=== PATIENT | female | born 1950 | race Caucasian/White ===

== ENCOUNTER 2017-09-16 05:24 | Inpatient (IN) | payer OTHER, MEDICARE, SELFPAY ==
[2017-09-03 10:44] VITALS: BP 155/79; PULSE 62; RESP 16; TEMP 36.1; O2SAT 95; BMI 33.3
--- NOTE | 2017-09-03 10:50 | SDCEKG_ITS ---
Test Reason : Blood Pressure : / mmHG Vent. Rate : 060 BPM Atrial Rate : 060 BPM P-R Int : 214 ms QRS Dur : 108 ms QT Int : 434 ms P-R-T Axes : 058 -29 069 degrees QTc Int : 434 ms Sinus rhythm with 1st degree A-V block Incomplete right bundle branch block Borderline ECG Confirmed by GERTRUDIS ROBERT ([id number]), editor index BANDAR HERMOSILLO ([id number]) on 09/10/2017 3:17:19 PM Referred By: FAUSTINO Confirmed By:GERTRUDIS ROBERT
--- NOTE | 2017-09-13 12:01 | CASEMGMT ---
Addendum entered by Alem Chery 09/13/17 14:51: Social Work Return phone call from the pt. Introduced self and role at [facility]. The pt reports that she lives with her in daughter in a two story home with a one-level setup and 2 steps for entry. DME consists of a walker and cane and pt denies anticipation of additional DME needs. Pt intends on participating in outpatient therapy at [facility] and confirms that she will have transportation to appointments. DARRIAN CM to f/u with post-operatively. Plan: Outpatient therapy at [facility]. JESSICA Ibarra Original Note: Social Work Placed call to the pt to discuss discharge planning. Left vm as pt was unavailable and requested a return phone call. SW to continue to follow and assist. JESSICA Ibarra
[2017-09-16] VITALS (12 sets, daily range): BP systolic 127–153; BP diastolic 48–87; PULSE 62–90; RESP 16–18; TEMP 36.4–36.9; O2SAT 92–98; BMI 33.3; BMI 32.8
[2017-09-16] MEDS: Celecoxib 200 MG Capsule 400 MG PO (05:57)
[2017-09-16] MEDS: oxyCODONE HCl Cr 10 MG Tablet 20 MG PO (05:57)
[2017-09-16] MEDS: Acetaminophen 500 MG Tablet 1000 MG PO ×2 (05:58→21:51)
[2017-09-16] MEDS: Lactated Ringers 1,000 ML 999 ML IV (06:30)
[2017-09-16] MEDS: Cefazolin 2 GM in Syringe IV (07:30)
--- NOTE | 2017-09-16 08:24 | RAD_ITS ---
STUDY: X-RAY - RIGHT KNEE REASON FOR EXAM: Female, 67 years old. Total knee arthroplasty. TECHNIQUE: AP and lateral view(s) of the knee. COMPARISON: None. FINDINGS: Normal visualized distal femur. Normal visualized proximal tibia and fibula. Normal proximal tibiofibular articulation. The patient is status post total knee replacement. There is good alignment. Postoperative soft tissue changes. RAD/Knee 1 or 2 Views IMPRESSION: Status post total knee replacement. There is good alignment. Postoperative soft tissue changes. Electronically Signed: Fabio Brown MD at 9:31 EST Tel [phone], Service support ,
--- NOTE | 2017-09-16 08:27 | PCM.OPRPT ---
Report of Operation Date of Procedure: 09/16/17 Pre-Operative Diagnosis: Severe end-stage osteoarthritis right knee Post-Operative Diagnosis: Severe end-stage osteoarthritis right knee Surgery/Procedure Performed:: Total knee arthroplasty right Description of Surgical Findings:: Eburnation of bone, varus alignment, periarticular osteophytes consistent with tricompartmental osteoarthritis immunologist: Bossman Stanley Type of Anesthesia:: Spinal Anesthesiologist: Adan Alcocer Special Medications: TXA Specimen's removed: Bone and soft tissue Estimated Blood Loss (mL): 100 Fluids Replaced: See anesthesia record Description of Procedure: Implants: Nisa triathlon size 3 cemented CR femur, 3 tibia, 32 x 9 mm patella cemented with Simplex. 9 mm cruciate retaining articulating surface Indications: Patient has severe end-stage osteoarthritis diagnosed via x-rays in the knee. They have failed all forms of conservative measures including activity modification, injections, anti-inflammatories, use of assistive device. The patient has pain that affects on a daily basis and prevents him from doing things that they enjoyed. They have elected to undergo the above procedure. The risks of the procedure were discussed at length and their questions were answered. Procedure description: The patient was greeted in the preoperative area. The right knee was then marked with a surgical marker. Patient was then taken to or [address]. They were administered a dose of antibiotics as well as tranexamic acid. Once adequate anesthesia was obtained and airway was secured to placed in supine position on the operating room table. A well-padded tourniquet was placed on the affected extremity. Leg was then prepped and draped in the usual sterile fashion from the knee down. Ioban was used on the skin. Surgical timeout was then performed and confirmed with all present. Six-inch Esmarch was used to examine the limb and tourniquet was then inflated to 250 mmHg. A longitudinal incision was then planned and carried out in the anterior aspect of the knee. The dissection was then carried the length of the incision the extensor mechanism was identified. Standard medial parapatellar arthrotomy was then performed revealing severe eburnation of bone and periarticular osteophytes. There is complete loss of cartilage especially in the medial compartment with varus alignment. Anterior fat pad was removed for visualization purposes and the anterior medial aspect of the tibia was skeletonized for exposure to the knee. The knee was then flexed the patella was inverted. Opening reamer was then used in the femur approximately 1 cm anterior to the attachment of the PCL. The intramedullary valgus wand was then placed in the femur set at 5? of valgus. The distal femoral cutting jig was then applied to the femur with anticipated resection of approximately 8 mm. This was then made with a oscillating saw. The sizing guide was then placed referencing off the posterior condyles and also reference off the epicondylar axis. This was measured and the appropriate size 4-in-1 cutting jig was then applied to the distal femur. Anterior posterior cuts were made followed by the anterior and posterior chamfer cuts. These bony pieces and fragments were removed and placed on the back table. Posterior retractor was then utilized and the tibia was subluxed anteriorly. Extramedullary tibial alignment jig was then applied to the tibia referencing off the medial one third of the tibial tubercle the anterior tibial spine the middle aspect of the tibiotalar joint. Also reference off patient's paiute-shoshone slope. The tibial cutting jig was then pinned with anticipated resection of 2 mm off of the deficient medial tibial condyle. This cut was made with the oscillating saw. Once this was complete a laminar cafeteria cashier was utilized in both medial lateral meniscus were removed and a posterior capsular osteophytes were also removed. Posterior capsule release was performed in the posterior capsule as well as the geniculate arteries are treated with the aqua Loreto. The tibia was incised and the appropriate sized tibial tray was then pinned. The femoral trial was then placed and the knee was trialed. Full flexion-extension were easily achieved. The knee seemed to balance quite nicely. Any remaining osteophytes were removed at this time. Once this was complete the patella was everted and the Brandon patella reaming device was then utilized the patella was then placed in the appropriate jig and reamer was then used to remove approximately 9 mm of the undersurface of the patella. A soft tissue remaining was in the way was removed and patella trial was then placed listed maintain excellent tracking using the no thumbs technique. The tibial tray at this point was punched to accommodate the fins of the final implant. At this point cement was mixed on the back table. The trial components were removed and the knee was copiously irrigated. Did use a cocktail of injection for postoperative pain control. The final components were then cemented in the standard fashion and excess cement was removed with cement removal tools and patellar clamp is placed in the patella. As the cement had cured in full extension tourniquet was deflated and hemostasis was perfect with Bovie cautery as well as the aqua Manus. Needle is once again trialed with different size polyethylenes to ensure the full range of motion was achieved as well as excellent balancing ligamentously was achieved. followed by copious irrigation. Final implant was then inserted locking mechanism was engaged and confirmed to be locked. The arthrotomy was then closed with #1 Vicryl aggravate type fashion interrupted. Subcutaneous tissue was closed with 0 Vicryl and surgical mg were placed in the skin. A occlusive silver impregnated dressing was then applied followed by well-padded sterile dressing secured with an Trace wrap. The patient was taken to the PACU in stable condition. No complications known at this time. Postoperatively we will maintain standard total knee postoperative protocol. The use of the physician assistant clinical director was integral during this procedure. They assisted with positioning placement of the tourniquet retracting closure and placement of the dressing. The procedure would have been much more difficult without their expertise and assistance - Admit VTE Documentation VTE Present on Admission: Yes VTE Mechan Device Prophylaxis: Thigh High KAMALA Blancae VTE Pharm Prophylaxis ordered?: Yes
[2017-09-16] MEDS: Ondansetron 4 MG/2 ML Vial IV (11:22)
[2017-09-16] MEDS: Lactated Ringers 1,000 ML 125 ML IV ×2 (14:24→23:00)
[2017-09-16] MEDS: Cefazolin 1 GM/50 ML BAG IV ×2 (14:25→23:00)
[2017-09-16] MEDS: Aspirin 325 MG Tablet PO (16:50)
[2017-09-16] MEDS: Celecoxib 200 MG Capsule PO (21:51)
[2017-09-16] MEDS: Atorvastatin Calcium 10 MG Tablet PO (21:51)
[2017-09-17 02:37] VITALS: BP 100/49; PULSE 64; RESP 18; TEMP 36.6; O2SAT 96
[2017-09-17] MEDS: Acetaminophen 500 MG Tablet 1000 MG PO ×3 (05:27→21:19)
[2017-09-17] MEDS: oxyCODONE 5 MG Tablet PO (07:22)
--- NOTE | 2017-09-17 07:29 | PCM.PN.ORT ---
Subjective: Patient sitting at bedside eating breakfast, pain well-managed. Patient denies chest pain, shortness breath, calf pain, nausea vomiting. No other complaints. Objective: Dressing is clean dry intact, neurovascular intact. Vital signs within normal limits. Negative signs and symptoms of DVT - Physical Exam General: Alert, Oriented x3, Cooperative Oral: Moist Mucosa Neurological: Cranial nerves II-XII grossly intact Psych/Mental Status: Normal Affect, Alert and oriented to time, place, person, mood and affect Vital Signs Temp Pulse Resp BP Pulse Ox 97.8 F 64 18 100/49 L 96 09/17/17 02:37 09/17/17 02:37 09/17/17 02:37 09/17/17 02:37 09/17/17 02:37 Oxygen Delivery Method Room Air Weight: 92.4 kg Body Mass Index (BMI) 32.8 Intake and Output for Last 24 Hours 09/15/17 09/16/17 09/17/17 23:59 23:59 23:59 Intake Total 1500 / 1500 1918 Output Total 100 / 100 Balance 1500 / 1500 1818 Assessment/Plan Status post right total knee arthroplasty Plan 1. Continue pain medications as prescribed 2. Begin physical therapy, weight-bear as tolerated, with walker 3. Aspirin 325 mg 1 p.o. every 12 hours ?30 days for postop DVT prophylaxis 4. Encourage incentive spirometry 5. Possible discharge home tomorrow 6. CBC and BMP today
[2017-09-17 08:30] VITALS: BP 113/47; PULSE 67; RESP 16; TEMP 36.6; O2SAT 99
[2017-09-17] MEDS: Lisinopril 10 MG Tablet PO (08:30)
[2017-09-17] MEDS: Celecoxib 200 MG Capsule PO ×2 (08:30→21:18)
[2017-09-17] MEDS: Aspirin 325 MG Tablet PO ×2 (08:30→17:13)
[2017-09-17 08:33] LABS: Absolute Lymphocyte Count 1.93 X10^3/ul (0.83-4.51); Basophil# 0.03 X10^3/uL; Basophil% 0.3 % (0-1); Eosinophil# 0.06 X10^3/uL; Eosinophils% 0.6 % (0-5); Hematocrit 38.3 % (37-47); Hemoglobin 12.1 g/dl (12.0-15.0); Lymphocyte # 1.93 X10^3/ul (4.0); Lymphocyte % 18.2 % (19-41); Mean Corp Hgb Conc 31.6 g/gl (32-36); Mean Corpuscular Hgb 29.2 pg (27.0-32.0); Mean Corpuscular Volume 92.3 fL (81-99); Mean Platelet Vol. 10.7 fl (6.2-12.0); Monocyte% 15.1 % (0-10); Neutrophil # 6.97 X10^3/uL (2.7-7.7); Neutrophil % 65.6 % (47-70); Platelet Count 263 K/mm3 (150-450); RBC Distribution Width CV 14.6 % (11.6-14.6); RBC Distribution Width SD 49.1 fl (35.1-43.9); Red Blood Count 4.15 M/mm3 (4.2-5.4); White Blood Count 10.6 K/mm3 (4.4-11.0)
[2017-09-17 08:35] LABS: Differential Indicated SCAN CRITERIA MET; POSITIVE COUNT NO; POSITIVE DIFFERENTIAL YES; POSITIVE MORPHOLOGY NO
[2017-09-17 08:50] LABS: Anion Gap 7 (5-15); BUN 15 mg/dL (7-18); BUN/Creat Ratio 15.8 RATIO (10-20); Calcium,Total 8.1 mg/dL (8.5-10.1); Chloride 105 mmol/L (98-107); Creatinine, Serum 0.95 mg/dL (0.55-1.02); EST Glomerular Filtration Rate 62 mL/min (>60); Est Glom Filt Rate - Afr Amer 75 mL/min (>60); Estimated Creatinine Clearance 52.32 ml/min; Glucose 111 mg/dL (70-110); Potassium 3.9 mmol/L (3.5-5.1); Sodium Level 140 mmol/L (136-145)
[2017-09-17] MEDS: Tolterodine Tartrate 2 MG CAP.SA PO (09:57)
--- NOTE | 2017-09-17 12:11 | CASEMGMT ---
DARRIAN VILLATORO Face to Face with patient for initial transition planning/care coordination assessment. RN SHAUNA introduced self and role at [facility]. Patient lying in bed, alert and oriented. Patient willing to participate in assessment and is able to answer all questions appropriately. Care providers, pharmacy, and demographics verified. See link attached. Patient wishes to discharge home with outpatient therapy setup at [facility] in [place]. Family is to provide transportation for patient to therapy. Patient states she has no further needs or concerns at this time. CM to follow for discharge planning needs that may arise. Disposition Plan: Patient to discharge home with outpatient therapy, and follow-up plans in place.
[2017-09-17] MEDS: CLARIFY ORDER NOTE (14:09)
[2017-09-17 14:10] VITALS: BP 114/55; PULSE 70; RESP 18; TEMP 36.4; O2SAT 96
[2017-09-17 20:00] VITALS: BP 130/45; PULSE 73; RESP 18; TEMP 36.9; O2SAT 98
[2017-09-17] MEDS: Atorvastatin Calcium 10 MG Tablet PO (21:18)
[2017-09-18 02:15] VITALS: BP 140/46; PULSE 76; RESP 18; TEMP 36.9; O2SAT 95
[2017-09-18] MEDS: oxyCODONE 5 MG Tablet PO ×2 (02:30→08:20)
[2017-09-18] MEDS: Acetaminophen 500 MG Tablet 1000 MG PO (05:55)
[2017-09-18 08:19] VITALS: BP 130/42; PULSE 77; RESP 18; TEMP 36.6; O2SAT 98
[2017-09-18] MEDS: Aspirin 325 MG Tablet PO (08:21)
[2017-09-18] MEDS: Celecoxib 200 MG Capsule PO (08:21)
[2017-09-18] MEDS: Lisinopril 10 MG Tablet PO (08:23)
[2017-09-18] MEDS: Tolterodine Tartrate 2 MG CAP.SA PO (10:56)
--- NOTE | 2017-09-18 12:32 | PCM.PN.ORT ---
Subjective: Patient sitting up in bed, pain well-managed. Patient states she has been having urinary frequency with urinary retention. Patient states the nursing staff is catheter ?2. Patient does admit that she has been being treated for UTI preoperatively, patient denies any complaints of pain, burning, or abdominal pain. Patient states that she did have urinary frequency preoperatively. Patient otherwise has no other complaints, pain well-managed, denies chest pain, shortness of breath, or nausea vomiting. States she is ready for discharge home Objective: Dressing is clean dry intact. Vital signs labs within normal limits. Patient's abdomen soft nontender. Patient has negative signs and symptoms of DVT. - Physical Exam General: Alert, Oriented x3, Cooperative HEENT: PERRLA Oral: Moist Mucosa Neurological: Cranial nerves II-XII grossly intact Psych/Mental Status: Normal Affect, Alert and oriented to time, place, person, mood and affect Vital Signs Temp Pulse Resp BP Pulse Ox 97.9 F 77 18 130/42 H 98 09/18/17 08:19 09/18/17 08:19 09/18/17 08:19 09/18/17 08:19 09/18/17 08:19 Oxygen Delivery Method Room Air Weight: 92.4 kg Body Mass Index (BMI) 32.8 Intake and Output for Last 24 Hours 09/16/17 09/17/17 09/18/17 23:59 23:59 23:59 Intake Total 1500 / 1500 2479 / 2479 440 / 440 Output Total 100 / 100 1500 / 1500 Balance 1500 / 1500 2379 / 2379 -1060 / -1060 Assessment/Plan Status post right total knee arthroplasty Postop urinary retention Plan 1. Continue pain medications as prescribed 2. Appendectomy outpatient at [facility]. 3. Aspirin 325 mg 1 p.o. every 12 hours ?30 days for postop DVT prophylaxis 4. Follow-up as scheduled, see pink sheet 5. Discharge home today 6. Straight cath prior to discharge, with SUPPLIER QUALITY ENGINEER 7. Discussed with urology, patient will be straight cath prior to discharge, urine will be sent for C&S, patient will begin Keflex 500 mg 1 p.o. every 8 hours ?7 days. Patient will call office for follow-up in 1-2 days
--- NOTE | 2017-09-18 12:37 | PN.ORTHO_ITS ---
Subjective: Patient sitting up in bed, pain well-managed. Patient states she has been having urinary frequency with urinary retention. Patient states the nursing staff is catheter ?2. Patient does admit that she has been being treated for UTI preoperatively, patient denies any complaints of pain, burning, or abdominal pain. Patient states that she did have urinary frequency preoperatively. Patient otherwise has no other complaints, pain well-managed, denies chest pain, shortness of breath, or nausea vomiting. States she is ready for discharge home Objective: Dressing is clean dry intact. Vital signs labs within normal limits. Patient' s abdomen soft nontender. Patient has negative signs and symptoms of DVT. - Physical Exam General: Alert, Oriented x3, Cooperative HEENT: PERRLA Oral: Moist Mucosa Neurological: Cranial nerves II-XII grossly intact Psych/Mental Status: Normal Affect, Alert and oriented to time, place, person, mood and affect Vital Signs Temp Pulse Resp BP Pulse Ox 97.9 F 77 18 130/42 H 98 09/18/17 08:19 09/18/17 08:19 09/18/17 08:19 09/18/17 08:19 09/18/17 08:19 Oxygen Delivery Method Room Air Weight: 92.4 kg Body Mass Index (BMI) 32.8 Intake and Output for Last 24 Hours 09/16/17 09/17/17 09/18/17 23:59 23:59 23:59 Intake Total 1500 / 1500 2479 / 2479 440 / 440 Output Total 100 / 100 1500 / 1500 Balance 1500 / 1500 2379 / 2379 -1060 / -1060 Assessment/Plan Status post right total knee arthroplasty Postop urinary retention Plan 1. Continue pain medications as prescribed 2. Appendectomy outpatient at [facility]. 3. Aspirin 325 mg 1 p.o. every 12 hours ?30 days for postop DVT prophylaxis 4. Follow-up as scheduled, see pink sheet 5. Discharge home today 6. Straight cath prior to discharge, with POULTRY PICKER 7. Discussed with urology, patient will be straight cath prior to discharge, urine will be sent for C&S, patient will begin Keflex 500 mg 1 p.o. every 8 hours ?7 days. Patient will call office for follow-up in 1-2 days
--- NOTE | 2017-09-18 12:40 | PCM.DC.TKR ---
Discharge Diet: No Restrictions Discharge Activity: May Not Drive, May Shower, Use Walker May shower in (days): 1 Ice area for (Minutes): 20 - each hour while awake. Weight Bearing Status: Weight bearing as tolerated Elevate: Operative Extremity Additional Activity Instructions:: Wear elastic stockings for 2 weeks after your surgery. Call your doctor if your incision/area has: Continuous Slow Oozing, Sudden Increased Bleeding, Increased Pain/ Swelling, Increased Redness, Foul Smelling Discharge Call your doctor if you observe: Fever of 101 or Higher, Coldness, Increased Pain - in extremity, Numbness or Tingling, Change in Color, Calf discomfort, Uncontrolled pain Change Dressing in (Days):: 0 - and daily as needed. Remove Dressing in (days):: 5 Cleanse incision/area with: Soap & Water Allergies/Adverse Reactions: Allergies adhesive tape Allergy (Verified 09/03/17 10:28) Rash Medications to take at Discharge Estrogens, Conjugated [Premarin] 0.45 mg PO QODAY 09/03/17 Lisinopril [Prinivil] 10 mg PO DAILY 09/03/17 Simvastatin [Zocor] 20 mg PO DAILY 09/03/17 Solifenacin Succinate [Vesicare] 5 mg PO DAILY 09/03/17 Acetaminophen [Tylenol] 1,000 mg PO Q8 #90 tab 09/18/17 Aspirin 325 mg PO BIDCM #60 tab 09/18/17 Celecoxib [Celebrex] 200 mg PO BID #60 cap 09/18/17 Cephalexin [Keflex] 500 mg PO Q12 #20 cap 09/18/17 MorphINE [Ms Contin] 15 mg PO BID #30 tab 09/18/17 Oxycodone [Oxyir] 5 - 10 mg PO Q6H PRN PRN #60 tab 09/18/17 The following prescriptions were given: Oxycodone [Oxyir] 5 - 10 mg PO Q6H PRN PRN #60 tab PRN Reason: Mod-Severe Pain (4-10) Acetaminophen [Tylenol] 1,000 mg PO Q8 #90 tab Cephalexin [Keflex] 500 mg PO Q12 #20 cap Aspirin 325 mg PO BIDCM #60 tab Celecoxib [Celebrex] 200 mg PO BID #60 cap MorphINE [Ms Contin] 15 mg PO BID #30 tab Primary Care Physician: Kenny Winn MD [Primary Care Provider] - Please Follow Up With: Bossman Stanley PA-C When: see pink sheet Please Follow Up With: Felipe Dupree MD - call for appt When: 1-2 days
[2017-09-18 12:56] VITALS: BP 126/41; PULSE 84; RESP 18; TEMP 36.9; O2SAT 98
[2017-09-18 13:56] LABS: Mucous, Urine 0 SEEN /hpf (<or=2+); Red Blood Cells-Urine 0 SEEN /hpf (0-5)
[2017-09-18 14:00] LABS: Color, Urine Yellow (Yellow); Glucose, Dipstick Normal (Normal); Ketone-Dipstick 15 mg/dl (Negative); Leukocyte Esterase-Dipstick 100 /ul (Negative); Nitrite-Dipstick Negative (Negative); Occult Blood-Urine Negative /ul (Negative); Protein-Dipstick Negative (Negative); Urine Bilirubin Dipstick Negative (Negative); Urine Clarity Sl. Cloudy (Clear); Urine Urobilinogen Normal (Normal)
[2017-09-18 14:06] LABS: Bacteria 1+ /hpf (None Seen); Squamous Epithelial Cells - UA 0-5 SEEN /hpf (5-10); White Blood Cells 10-25 SEEN /hpf (0-5)
[2017-09-18] MEDS: Cephalexin 500 MG Capsule PO (14:11)
== END 2017-09-18 14:20 | disposition home or self-care (01) | DRG 470 ==
LOC: ACINP 05:30 → MS3 08:36
PROVIDERS: Physician Assistant; Admitting Provider Orthopaedic Surgery; Family Provider Family Medicine; PCP Family Medicine; Visit Provider Orthopaedic Surgery
PROC: 0SRC0J9 Replacement of Right Knee Joint with Synthetic Substitute, Cemented, Open Approach (ICD-10-PCS; CPT 27447; principal; 2017-09-16 06:50)
DX: M17.11 Unilateral primary osteoarthritis, right knee (principal); E78.00 Pure hypercholesterolemia, unspecified; N39.0 Urinary tract infection, site not specified; R33.9 Retention of urine, unspecified; I44.0 Atrioventricular block, first degree; I10 Essential (primary) hypertension; Z78.0 Asymptomatic menopausal state; Z79.82 Long term (current) use of aspirin; Z79.899 Other long term (current) drug therapy
CPT/HCPCS: 73560; 80048; 81001; 85025; 87081; 87086; 93005; 97110; 97116; 97150; 97162; 97165; 97530; J7120; J2405

== ENCOUNTER → 2021-05-30 07:05 | Outpatient (CLI) | payer MEDICARE, SELFPAY ==
--- NOTE | 2021-05-30 07:17 | MRI_ITS ---
STUDY: MRI RIGHT MIDFOOT/FOREFOOT REASON FOR EXAM: Female, 70 years old. OSTEOARTHRITIS RIGHT FOOT,LATERAL FOOT PAIN X 4-6 MOS TECHNIQUE: Standardized fat and water weighted pulse sequences were obtained in all 3 orthogonal planes. COMPARISON: None. FINDINGS: Normal Lisfranc ligament. Mild flexor tenosynovitis at the master knot of Rogelio (axial image 39 series 6). Distal flexor tendon intact with mild second and third flexor peritendinitis. Normal extensor tendons. No acute fracture or dislocation. Well-corticated cysts/erosions at the fifth metatarsal head (sagittal image 14 series 8). Cyst/erosions at the midfoot (sagittal image 18 series 8). Multiregional bone marrow edema/cysts. Mild/moderate navicular cuneiform joint arthrosis predominating medially. Mild tarsometatarsal joint arthrosis. Mild first metatarsophalangeal joint arthrosis. Mild/moderate joint space narrowing at the digits most severe at the second and third distal interphalangeal joints. Small volume metatarsophalangeal joint effusions at the first, second and fifth digits. Mild soft tissue swelling at the midfoot/forefoot. Capsular/ligamentous structures intact. No solid, cystic or lipomatous soft tissue lesions. No muscle atrophy. MRI/Lower Ext/No Jt/w/o IMPRESSION: Multiregional cyst/erosions with mild/moderate osteoarthritis (exclude underlying inflammatory arthropathy) Mild flexor tenosynovitis with secondary digit flexor peritendinitis Small volume joint effusions with mild soft tissue swelling Electronically Signed: Alex Gusman DO at 11:23 EDT Tel , Service support ,
== END ==
PROVIDERS: PCP Family Medicine; Referring Provider Podiatrist; Visit Provider Podiatrist
DX: M19.071 Primary osteoarthritis, right ankle and foot (principal); M21.621 Bunionette of right foot
CPT/HCPCS: 73718

== ENCOUNTER → 2021-09-15 | Outpatient (CLI) | payer MEDICARE, SELFPAY | END | disposition home or self-care (01) | LOC: LABSPEC 11:26 | PROVIDERS: PCP Family Medicine; Referring Provider Physician Assistant Surgical; Visit Provider Physician Assistant Surgical | DX: Z11.52 Encounter for screening for COVID-19 (principal) | CPT/HCPCS: 87635; U0005; U0003 ==

== ENCOUNTER → 2023-02-19 | Outpatient (CLI) | payer MEDICARE, SELFPAY ==
--- NOTE | 2023-02-19 06:33 | ECHOCS_ITS ---
Reason For Study: SOB/Dyspnea Procedure This was a 2D Doppler, Color Flow transthoracic echocardiogram. The study was technically difficult. Contrast injection was performed. Exam performed in department. Left Ventricle Normal LV size. Left ventricular systolic function is normal. The estimated ejection fraction is 60 %. Stage 1 diastolic dysfunction. No regional wall motion abnormalities noted. Right Ventricle Normal RV size. Normal systolic function. Atria Normal left atrium. Normal right atrium. Mitral Valve Normal mitral valve. Tricuspid Valve Normal tricuspid valve. Aortic Valve Trisinus/trileaflet aortic valve. Pulmonic Valve Normal pulmonic valve. Great Vessels Normal aortic root. The pulmonary artery is normal size. Normal inferior vena cava. Pericardium/Pleural No pericardial effusion. Medication 22 gauge I.V. with prn adaptor inserted into right arm. Diluted definity 2ml given slow IV push to enhance endocardial definition. MMode/2D Measurements & Calculations LVIDd: 4.7 cm IVSd: 0.92 cm Ao root diam: 3.0 cm LVIDs: 3.3 cm LVPWd: 0.88 cm LA dimension: 4.0 cm RVDd: 3.6 cm FS: 30.7 % LAV(MOD-bp): 42.5 ml LVAd ap4: 28.3 cm2 SV(MOD-sp4): 62.4 ml LAV(MOD-bp) Indexed: 21.5 ml/m2 LVLd ap4: 7.6 cm LAV(MOD-sp2): 36.9 ml EDV(MOD-sp4): 86.9 ml LAV(MOD-sp4): 40.1 ml EDV(sp4-el): 89.3 ml LVAs ap4: 13.0 cm2 LVLs ap4: 6.1 cm ESV(MOD-sp4): 24.6 ml ESV(sp4-el): 23.9 ml EF(MOD-sp4): 71.7 % EF(sp4-el): 73.3 % SV(sp4-el): 65.4 ml LA A4 area: 17.3 cm2 RA A4 area: 17.3 cm2 Time Measurements MV dec time: 0.21 sec Doppler Measurements & Calculations MV E max steve: 65.6 cm/sec Lat Peak E' Steve: 9.7 cm/sec Med Peak E' Steve: 11.1 cm/sec MV A max steve: 98.4 cm/sec E/E' lat: 6.8 E/E' med: 5.9 MV E/A: 0.67 MV V2 max: 115.3 cm/sec MV P1/2t max steve: 91.8 cm/sec Ao V2 max: 118.2 cm/sec MV max P.3 mmHg MV P1/2t: 85.7 msec Ao max P.6 mmHg MV V2 mean: 52.2 cm/sec Ao V2 mean: 81.6 cm/sec MV mean P.4 mmHg MV dec slope: 313.9 cm/sec2 Ao mean P.1 mmHg MV V2 VTI: 38.7 cm MVA(P1/2t): 2.6 cm2 Ao V2 VTI: 30.9 cm LV V1 max: 88.8 cm/sec PA V2 max: 112.2 cm/sec LV V1 max P.2 mmHg PA V2 mean: 84.2 cm/sec ECHO/Echo Complete W/ Contrast Interpretation Summary Normal LV size. Left ventricular systolic function is normal. The estimated ejection fraction is 60 %. Stage 1 diastolic dysfunction. Contrast injection was performed. Ordering Physician: Loi Maxwell Referring Physician: Epi Gaston Performed By: Surendra Bae RCS
--- NOTE | 2023-02-19 12:41 | STRESSREP ---
Stress Test Report Exercise myocardial perfusion stress test. 72-year-old lady with a history of dyspnea on exertion Stress protocol: Resting EKG demonstrates normal sinus rhythm with a rate of 57 bpm resting blood pressure is 122/70 mmHg. The patient exercised according to the regular Jonny protocol for a total duration of 6 minutes attaining a maximum heart rate of 136 bpm which was 93% of maximum predicted heart rate; the maximum workload was 7 METS metabolic equivalents. At rest there were no ST or T wave changes noted to suggest ischemia and at peak exercise upsloping ST changes only were noted which did not meet the criteria for ischemia. No clinical angina was noted the test was terminated due to the target heart rate being achieved/fatigue. The peak blood pressure was 164/60 mmHg. Rate-pressure product was 21,800. Myocardial perfusion protocol. 11.8 mCi of technetium 99m sestamibi was injected at rest. The patient exercised according to regular Jonny protocol for total duration of 6 minutes and at peak exercise 34.5 mCi of technetium 99m sestamibi was injected stress images were obtained stress and rest images were reconstructed in comparing the short axis vertical long and horizontal long axis. Gated images were also obtained. Perfusion SPECT analysis: Review of the stress images demonstrate normal uptake of tracer noted in all areas of the myocardium. The resting images similarly demonstrate normal uptake of tracer noted in all areas of the myocardium. No areas of reversibility are noted to suggest ischemia no previous infarct was noted. Gated SPECT analysis: The gated ejection fraction is 78%. Conclusion: Normal exercise myocardial perfusion stress test at a moderate workload Preserved ejection fraction.
== END | disposition home or self-care (01) ==
LOC: CVS 06:32
PROVIDERS: PCP Student in an Organized Health Care Education/Training Program; Referring Provider Internal Medicine Cardiovascular Disease; Visit Provider Internal Medicine Cardiovascular Disease
DX: I10 Essential (primary) hypertension (principal); R06.09 Other forms of dyspnea
CPT/HCPCS: 78452; 93017; 93306; A9500; Q9957; A4216; C8929

== ENCOUNTER → 2023-03-06 | Outpatient (CLI) | payer MEDICARE, SELFPAY ==
--- NOTE | 2023-03-06 12:54 | CT_ITS ---
INDICATION: CARDIAC EXAMINATION: CT CHEST WITHOUT CONTRAST - CT Chest W/O Contrast Injection TECHNIQUE: Helically acquired images were obtained of the chest. A radiation dose optimization technique was used for this scan. IV Contrast dosage and agent: None. COMPARISON: None. FINDINGS: LUNGS, PLEURA AND LARGE AIRWAYS: No masses, consolidation, or edema. No pleural effusion or thickening. No pneumothorax. THYROID: No thyroid lesions. HEART AND PERICARDIUM: Heart size is normal. No pericardial effusion. CORONARY ARTERIES: Coronary artery calcification is seen. VESSELS: Atherosclerotic plaque formation of the aortic arch and descending thoracic aorta. MEDIASTINUM AND KATERINA: Small benign appearing mediastinal lymph nodes. Calcified subcarinal lymph nodes as well as right hilar lymph nodes. Esophagus is unremarkable. No hiatal hernia. UPPER ABDOMEN: No acute pathology. BONES: Degenerative changes of the thoracic vertebrae. CT/Limited Chest CT Cardiac Only IMPRESSION: Coronary artery calcification. Electronically Signed: Fabio Brown MD at 15:22 EDT ,
--- NOTE | 2023-03-06 15:16 | CA.SCORE ---
Calcium Scoring Date of Study:: 03/06/23 Coronary Calcium Scoring: High-resolution Computed Tomographic imaging of the chest was performed on [ ], with particular attention paid to the coronary arteries. Images from the examination were analyzed for the presence and extent of coronary artery calcification , using coronary calcium quantification software. The patient tolerated the procedure well and there were no complications. The results of the coronary calcification analysis are provided below. Findings Coronary Artery Left Main (LM): 41 Left Anterior Descending (LAD): 0 Left Circumflex (LCX): 31 Right Coronary Artery (RCA): 27 Total Agatston Score: 99 Percentile Rankinth percentile to 75th percentile Calcium Scoring Interpretation: Different methods to categorize the overall amount of coronary plaque. Overall amount CAC SIS Visual of coronary plaque P1 Mild -100 <2 1-2 vessels with mild amount of plaque P2 Moderate 101-300 3-4 1-2 vessels with moderate amount, 3 vessels with mild amount of plaque P3 Severe 301-999 5-7 3 vessels with moderate amount, 1 vessel with severe amount of plaque P4 Extensive >1000 >8 2-3 vessels with severe amount of plaque Calcium Score: Mild: 1-2 vessels w/mild amount of plaque Conclusion: Mild atherosclerotic plaquing noted.
== END | disposition home or self-care (01) ==
LOC: CT 12:44
PROVIDERS: PCP Student in an Organized Health Care Education/Training Program; Referring Provider Internal Medicine Cardiovascular Disease; Visit Provider Internal Medicine Cardiovascular Disease
DX: I10 Essential (primary) hypertension (principal)
CPT/HCPCS: 75571; 76380

== ENCOUNTER → 2023-07-26 | Outpatient (CLI) | payer MEDICARE, SELFPAY ==
[2023-07-26 12:27] LABS: Absolute Lymphocyte Count 2.01 X10^3/uL (0.83-4.51); Absolute Neutrophil Count 3.9 X10^3/uL (2.0-7.7); Basophil# 0.06 X10^3/uL; Basophil% 0.8 % (0-1); Eosinophils% 1.4 % (0-5); Hematocrit 41.8 % (37-47); Hemoglobin 13.1 g/dL (12.0-15.0); Lymphocyte # 2.01 X10^3/ul (0.83-4.51); Lymphocyte % 27.8 % (19-41); Mean Corp Hgb Conc 31.3 g/dL (32-36); Mean Corpuscular Hgb 28.5 pg (27.0-32.0); Mean Corpuscular Volume 90.9 fL (81-99); Mean Platelet Vol. 10.4 fl (6.2-12.0); Monocyte# 1.19 X10^3/uL; Monocyte% 16.5 % (0-10); NRBC Flagged by Analyzer 0 % (0-5); Neutrophil # 3.85 X10^3/uL (2.7-7.7); Neutrophil % 53.2 % (47-70); Platelet Count 373 K/mm3 (150-450); RBC Distribution Width CV 13.8 % (11.6-14.6); RBC Distribution Width SD 46.3 fl (35.1-43.9); White Blood Count 7.2 K/mm3 (4.4-11.0)
[2023-07-26 12:49] LABS: ALB/GLOB Ratio 0.8 RATIO (0.9-2.4); AST(SGOT) 12 U/L (15-37); Alanine Aminotransfer ALT/SGPT 24 U/L (13-56); Albumin, Serum 3.4 g/dL (3.2-5.0); Alkaline Phosphatase 124 U/L (45-117); Anion Gap 7 (5-15); BUN 14 mg/dL (7-18); BUN/Creat Ratio 15.2 RATIO (10-20); Calcium,Total 9.1 mg/dL (8.5-10.1); Chloride 106 mmol/L (98-107); Cholesterol 182 mg/dL (200); Creatinine, Serum 0.92 mg/dL (0.55-1.02); EST Glomerular Filtration Rate 63 mL/min (>60); Est Glom Filt Rate - Afr Amer 76 mL/min (>60); Globulin 4.2 g/dL (2.2-4.2); Glucose 105 mg/dL (74-106); High Density Lipoprotein 59 mg/dL; Potassium 3.9 mmol/L (3.5-5.1); Protein, Total 7.6 g/dL (6.4-8.2); Sodium Level 139 mmol/L (136-145); T4 Free Direct 1.02 ng/dL (0.76-1.46); Thyroid Stim Hormone (TSH) 1.09 uIU/mL (0.358-3.74); Triglycerides 118 mg/dL; Very Low Density Lipoprotein 24 mg/dL (5-40)
== END | disposition home or self-care (01) ==
LOC: BIMLAB 10:28
PROVIDERS: PCP Internal Medicine; Referring Provider Internal Medicine; Visit Provider Internal Medicine
DX: I10 Essential (primary) hypertension (principal)
CPT/HCPCS: 36415; 80053; 80061; 84439; 84443; 85025

== ENCOUNTER → 2023-09-04 | Outpatient (CLI) | payer MEDICARE, SELFPAY ==
--- NOTE | 2023-09-04 10:48 | BI_ITS ---
MAMMOGRAPHY - BILATERAL SCREENING REASON FOR EXAM: Female, 73 years old. Routine annual screening examination. PERTINENT HISTORY: Non-contributory. Prior bilateral breast reduction surgery. TECHNIQUE: Digital bilateral breast venkata (3D mammographic acquisition) in the CC and MLO projections. 2-D mediolateral oblique (MLO) and craniocaudad (CC) views of both breasts were obtained. CAD: Full Field Digital Mammography with Computer Added Detection was performed. COMPARISON: Comparison is made with prior outside examination dated May 25, 2022. FINDINGS: Breast Composition: There are scattered areas of fibroglandular density. There are no dominant masses or suspicious calcifications. Stable small bilateral axillary lymph nodes. No other significant abnormalities are identified. There has been no significant change since the prior study. BI/SCRN MAMM (CAD)W/VENKATA BILAT IMPRESSION: Stable bilateral screening mammogram. Yearly follow-up mammogram recommended. (A) ASSESSMENT CATEGORY: BIRADS Category 2: Benign. A letter regarding these results will be sent to the patient by the facility within 30 days. Approximately 10% of breast cancers are not detected by mammography. A normal mammogram should not delay biopsy of a clinically suspicious abnormality. [id number] Electronically Signed: Fabio Brown MD at 10:06 EST ,
== END | disposition home or self-care (01) ==
LOC: OPBI 10:46
PROVIDERS: PCP Internal Medicine; Referring Provider Internal Medicine; Visit Provider Internal Medicine
DX: Z12.31 Encounter for screening mammogram for malignant neoplasm of breast (principal)
CPT/HCPCS: 77063; 77067

== ENCOUNTER 2023-09-24 06:45 | Day surgery (SDC) | payer MEDICARE, SELFPAY ==
--- NOTE | 2023-09-24 06:54 | H&P.OPEN ---
[facility] - General General Date of Service: 09/24/23 HPI Narrative JOSE ANGEL CARMONA, is a 73 F who presents for screening colonoscopy. Patient never had previous colonoscopy. Patient denies any family history of colon cancer. Patient denies any chronic abdominal pain/nausea/vomiting/reflux. Patient has bowel movements daily denies any blood. [facility] Medical History Anxiety and depression Arthritis Back pain Cardiology follow-up encounter Carotid atherosclerosis Colon cancer screening Depression Essential hypertension Fatigue Health care maintenance Heart murmur High cholesterol History of back problems History of echocardiogram History of edema History of stress test Hyperlipidemia Hypertension Mass in neck Non-smoker OAB (overactive bladder) Obesity (BMI 30-39.9) Peripheral edema Post-menopausal Thyroid enlargement Thyroid with heterogeneous echotexture determined by ultrasound Wears glasses Home Medications escitalopram oxalate 10 mg tablet 20 mg (2 x 10 mg) PO DAILY #90 tabs 08/05/23 [Rx Last Taken Unknown] hydrochlorothiazide 25 mg tablet 25 mg PO DAILY #90 tabs 08/05/23 [Rx Last Taken Unknown] losartan 50 mg tablet 50 mg PO DAILY #90 tabs 08/05/23 [Rx Last Taken Unknown] simvastatin 40 mg tablet 40 mg PO QHS #90 tabs 08/05/23 [Rx Last Taken Unknown] oxybutynin chloride 10 mg tablet,extended release 24 hr 10 mg PO QHS 09/18/23 [History Last Taken Unknown] Allergy/AdvReac Type Severity Reaction Status Date / Time adhesive tape Allergy Rash Verified 09/18/23 15:32 Family History Mother CAD (coronary artery disease) DVT (deep venous thrombosis) Arthritis Father COPD (chronic obstructive pulmonary disease) Grandfather Myocardial infarction Sister Bleeding disorder Surgical History H/O tubal ligation History of appendectomy History of arthroplasty of right knee (09/16/17) History of dilatation and curettage Hx of abdominal hysterectomy Hx of breast reduction, elective Plantar fasciitis Social History Smoking Status: Never smoker alcohol intake: never substance use type: does not use caffeine: Yes Type: coffee Number of servings: 2 what type of physical activity do you participate in: walking frequency: daily seatbelt use: always do you feel safe at home: Yes Past Medical/Surgical History Planned Operation Planned Operative Procedure/s: CSCOPE OA S.O.S: No Previous Hospitalizations/Surgeries HX Hospitalizations: No HX of Surgeries: HYSTERECTOMY ADHESIONS REMOVED BILAT HAMMERTOE REPAIR RIGHT FOOT PLANTAR FASCITIS REPAIR D&C X2 HOSPITALIZED FOR BREAST INFECTION AFTER REDUCTION BILAT BREAST REDUCTION Any Problems With Anesthesia: No You/Your Family Experience Fever (Hyperthermia) With Anes: No Cholinesterase deficiency: No Cardiovascular Hx Chest Pain within Last 2 months: No Hx of Irregular Heartbeat and/or Afib: No (MVP) Hx Heart Attack: No Hx Congestive Heart Failure: No Hx Rheumatic Fever: No Hx Hypertension: Yes (CONTROLLED WITH MED) Hx Internal Defibrillator: No Hx Pacemaker: No Hx Cardiac Catheterization: No Hx Cardiac Surgery/Stents/Etc.: No Hx Stress Test: No Hx Pain in Legs when Walking/Leg Cramps: No Respiratory Chronic Cough: No HX of Shortness of Breath: Yes (SOB WITH 2 FLIGHTS OF STAIRS) Hoarseness: No Hx Chronic Obstructive Pulmonary Disease (COPD): No Hx Asthma: No Hx Emphysema: No Hx Sleep Apnea: No Hx Respiratory Tract Infection/Cold (presently): No Do You Snore Loudly (louder than talking or can be heard): No Do You Often Feel Tired/ Fatigued/ Sleepy Dring Daytime?: Yes Has Anyone Observed You Stop Breathing During Sleep?: No Result (for STOP score): Positive Hx Smoking: No Smoking Status: Never smoker Gastrointestinal Hx Gastrointestinal Disorders: No Hx Gastrointestinal Bleed: No Hx Ulcer: No Hx Hiatal Hernia: No Difficulty Chewing/Swallowing: No Special diet followed at home: No Hx Unplanned Weight Loss of 20#: No HX Unplanned Weight Gain of 20#: No Neurological Hx Seizures: No HX Syncope/Blackout Spells/Unconsciousness: No Hx Transient Ischemic Attacks (TIA): No Hx Multiple Sclerosis: No Hx Parkinson's Disease: No Hx Head/Neck Injury: No Hx Headaches: No Hx Back Injury/Pain: Yes (LOWER BACK PAIN AT TIMES) Recent Onset of Speech Difficulty: No Restless Legs: No Does patient have nerve stimulator: No Blood Disorder Hx Leukemia: No Bleeding Tendencies: No Hx Deep Vein Thrombosis: No Hx High Cholesterol: Yes (ON MED) Blood Transmitted Disease: No Hx Hepatitis: No Hx Cirrhosis: No Hx Anemia: No Hx Blood Disorders: No Reproduction : No Is Patient Lactating: No Hx Hysterectomy: Yes Hx Tubal Ligation: No Are You Post Menopause: Yes Genitourinary Hx Renal Disease: No (FREQ. BLADDER INFECTION/ON ANTIBIOTICS NOW FOR UTI) Musculoskeletal Hx Arthritis: Yes Hx Rheumatoid Arthritis: No Hx Gout: No Recent Onset of an Orthopedic Problem: No Endocrine Hx Diabetes: No Thyroid Disease: No Hx Steroid Therapy: Yes (CORTISONE RIGHT KNEE 07/2016) Psycho/Social Hx Substance Use: No Hx Alcohol Use: No Hx Anxiety: No Hx Depression: No Mental Illness: No Hx Dementia: No Miscellaneous Hx Cancer: No Recent Exposure to Contagious Disease: No Hx of C-Diff: No Any Loose Teeth: No Allergies adhesive tape Allergy (Verified 09/18/23 15:32) Rash Discharge Is Pt Admitted From a Long Term, or a Nursing Home: No After D/C, Where Do you Plan to Go: Return Home From the PAT History Number of Risk Factors: 1 Physical Exam Const alert, oriented x3 and no apparent distress HEENT normocephalic and head/scalp atraumatic Resp normal respiratory effort Cardio regular rate GI soft to palpation and non-tender; Negative for non-distended Palpation: Negative for guarding Extremity no clubbing, cyanosis or edema Skin no rashes or lesions noted Neuro CN's II-XII intact bilaterally Psych mental status grossly normal Assessment & Plan Assessment/Plan (1) Colon cancer screening: Surgery Risks - Colonoscopy I discussed with the patient the risks of the procedure: Yes Risks Include but are not Limited To: Risks include but are not limited to: Bleeding, perforation requiring further surgery, inability to complete colonoscopy requiring barium enema.
[2023-09-24 07:08] VITALS: BP 120/73; PULSE 92; RESP 16; TEMP 36.6; O2SAT 93; BMI 30.6
[2023-09-24] MEDS: Lactated Ringers 1,000 ML 15 ML IV (07:10)
--- NOTE | 2023-09-24 08:26 | OP.CCLET_ITS ---
09/24/2023 Anuel Doyle MD [address] [place] [address] Re : Colonoscopy procedure for [facility] [place]. Doyle This procedure was performed on Sunday, September 24, 2023. My impressions and recommendations are as follows: Impressions : - Hemorrhoids found on perianal exam. - Non-bleeding internal hemorrhoids. - The entire examined colon is normal. - No specimens collected. Recommendations : - Discharge patient to home. - Resume previous diet. - Continue present medications. - Repeat colonoscopy in 10 years depending on overall health at that time. My findings are described in the full procedure note, which is enclosed. If I can be of further assistance, please feel free to contact me at Doctor phone number(s): , Work: . Sincerely, MD Judy Mora MD 09/24/2023 8:25:56 AM This report has been signed electronically.
--- NOTE | 2023-09-24 08:26 | OP.COLON_ITS ---
Patient Name: Lisa Peck Procedure Date: 09/24/2023 7:59 AM Date of : 1950 Age: 73 Procedure: Colonoscopy Indications: Screening for colorectal malignant neoplasm Providers: Judy Delgado MD Medicines: Monitored Anesthesia Care Patient Profile: This is a 73 year old female. Last Colonoscopy: none. The patient's first colonoscopy is today. Complications: No immediate complications. Procedure: Pre-Anesthesia Assessment: - Prior to the procedure, a History and Physical was performed, and patient medications and allergies were reviewed. The patient's tolerance of previous anesthesia was also reviewed. The risks and benefits of the procedure and the sedation options and risks were discussed with the patient. All questions were answered, and informed consent was obtained. Prior Anticoagulants: The patient has taken no anticoagulant or antiplatelet agents. ASA Grade Assessment: Per anesthesia. After reviewing the risks and benefits, the patient was deemed in satisfactory condition to undergo the procedure. After I obtained informed consent, the scope was passed under direct vision. Throughout the procedure, the patient's blood pressure, pulse, and oxygen saturations were monitored continuously. The Colonoscope was introduced through the anus and advanced to the cecum, identified by appendiceal orifice and ileocecal valve. The colonoscopy was performed without difficulty. The patient tolerated the procedure well. The quality of the bowel preparation was good. Scope In: 8:06:34 AM Scope Withdrawal Time 0 hours 7 minutes 40 seconds Scope Out: 8:21:09 AM Total Procedure Duration Time 0 hours 14 minutes 35 seconds Findings: Hemorrhoids were found on perianal exam. Non-bleeding internal hemorrhoids were found. The hemorrhoids were Grade I (internal hemorrhoids that do not prolapse). The entire examined colon appeared normal. Impression: - Hemorrhoids found on perianal exam. - Non-bleeding internal hemorrhoids. - The entire examined colon is normal. - No specimens collected. Recommendation: - Discharge patient to home. - Resume previous diet. - Continue present medications. - Repeat colonoscopy in 10 years depending on overall health at that time. Procedure Code(s): --- Professional --- G0121, PT, Colorectal cancer screening; colonoscopy on individual not meeting criteria for high risk Diagnosis Code(s): --- Professional --- Z12.11, Encounter for screening for malignant neoplasm of colon K64.0, First degree hemorrhoids CPT copyright 2022 [employer]. All rights reserved. The codes documented in this report are preliminary and upon photographer scientific review may be revised to meet current compliance requirements. MD Judy Mora MD 09/24/2023 8:25:56 AM This report has been signed electronically. Number of Addenda: 0 Note Initiated On: 09/24/2023 7:59 AM
[2023-09-24 08:30] VITALS: BP 120/73; BP 134/69; PULSE 92; RESP 16; TEMP 36.2; O2SAT 97
[2023-09-24 08:35] VITALS: BP 117/56; BP 120/73; PULSE 86; RESP 16; O2SAT 94
[2023-09-24 08:40] VITALS: BP 120/66; BP 120/73; PULSE 83; RESP 16; TEMP 36.2; O2SAT 96
[2023-09-24 09:00] VITALS: BP 120/73
== END 2023-09-24 09:03 | disposition home or self-care (01) ==
LOC: EN 06:46 → AC 06:48
PROVIDERS: PCP Internal Medicine; Referring Provider Internal Medicine; Visit Provider Surgery
PROC: 0DJD8ZZ Inspection of Lower Intestinal Tract, Via Natural or Artificial Opening Endoscopic (ICD-10-PCS; CPT 45378; principal; 2023-09-24 08:10)
DX: Z12.11 Encounter for screening for malignant neoplasm of colon (principal); K64.0 First degree hemorrhoids; E78.00 Pure hypercholesterolemia, unspecified; I10 Essential (primary) hypertension; F41.8 Other specified anxiety disorders; Z79.899 Other long term (current) drug therapy; Z90.49 Acquired absence of other specified parts of digestive tract; Z96.651 Presence of right artificial knee joint; Z90.710 Acquired absence of both cervix and uterus
CPT/HCPCS: G0121; J7120; J2405

== ENCOUNTER → 2024-01-22 | Outpatient (CLI) | payer MEDICARE, SELFPAY ==
[2024-01-22 12:51] LABS: Anion Gap 4 (5-15); BUN 25 mg/dL (7-18); BUN/Creat Ratio 27.9 RATIO (10-20); Calcium,Total 9.4 mg/dL (8.5-10.1); Chloride 105 mmol/L (98-107); EST Glomerular Filtration Rate 65 mL/min (>60); Est Glom Filt Rate - Afr Amer 79 mL/min (>60); Glucose 95 mg/dL (74-106); Sodium Level 139 mmol/L (136-145); T4 Free Direct 1.04 ng/dL (0.76-1.46); Thyroid Stim Hormone (TSH) 1.55 uIU/mL (0.358-3.74)
== END | disposition home or self-care (01) ==
LOC: BIMLAB 08:33
PROVIDERS: PCP Internal Medicine; Referring Provider Internal Medicine; Visit Provider Internal Medicine
DX: I10 Essential (primary) hypertension (principal)
CPT/HCPCS: 36415; 80048; 84439; 84443

== ENCOUNTER → 2024-02-07 | Outpatient (CLI) | payer MEDICARE, SELFPAY ==
[2024-02-07 07:48] LABS: Anion Gap 4 (5-15); BUN 18 mg/dL (7-18); BUN/Creat Ratio 19.6 RATIO (10-20); Calcium,Total 9.1 mg/dL (8.5-10.1); Chloride 109 mmol/L (98-107); Creatinine, Serum 0.92 mg/dL (0.55-1.02); EST Glomerular Filtration Rate 63 mL/min (>60); Est Glom Filt Rate - Afr Amer 77 mL/min (>60); Glucose 91 mg/dL (74-106); Potassium 3.9 mmol/L (3.5-5.1); Sodium Level 141 mmol/L (136-145)
== END | disposition home or self-care (01) ==
LOC: LAB 06:34
PROVIDERS: PCP Internal Medicine; Referring Provider Internal Medicine; Visit Provider Internal Medicine Cardiovascular Disease
DX: Z51.81 Encounter for therapeutic drug level monitoring (principal); Z79.899 Other long term (current) drug therapy
CPT/HCPCS: 36415; 80048

== ENCOUNTER → 2024-04-30 | Outpatient (CLI) | payer MEDICARE, SELFPAY ==
--- NOTE | 2024-04-30 07:56 | CDU_ITS ---
Reason For Study: occlusion and stenosis Rt. Velocities/BP Lt. Velocities/BP Prox CCA 102.5/13.5 cm/sec. Prox CCA 113.8/22.5 cm/sec. Mid CCA 72.9/13.5 cm/sec. Mid CCA 87.6/17.6 cm/sec. Dist CCA 80.6/15.7 cm/sec. Dist CCA 85.1/21.2 cm/sec. Prox ICA 99.8/18.8 cm/sec. Prox ICA 77.7/18.8 cm/sec. Mid ICA 87.0/20.7 cm/sec. Mid ICA 106.0/31.1 cm/sec. Dist ICA 79.0/19.1 cm/sec. Dist ICA 112.1/18.8 cm/sec. Rt. ICA/CCA = 1.4. Lt. ICA/CCA = 1.3. Prox ECA 98.6/15.1 cm/sec. Prox ECA 115.8/15.1 cm/sec. Rt. Vert. 64.1/11.3 cm/sec. Lt. Vert. 48.5/10.7 cm/sec. Right Extracranial There is intimal thickening but no significant atherosclerotic plaque noted in the right common carotid artery. There is heterogeneous, irregular atherosclerotic plaque noted in the right internal carotid artery. There is intimal thickening but no significant atherosclerotic plaque noted in the right external carotid artery. Antegrade flow is noted in the right vertebral artery. Left Extracranial There is homogeneous, smooth atherosclerotic plaque noted in the left common carotid artery. There is heterogeneous, irregular atherosclerotic plaque noted in the left internal carotid artery. There is heterogeneous, irregular atherosclerotic plaque noted in the left external carotid artery. Antegrade flow is noted in the left vertebral artery. Procedure Carotid Duplex 24097. This is a Carotid Duplex examination using B-mode, color flow and specral Doppler. The exam was diagnostic. Exam performed in department. VL/Carotid Duplex Ultrasound Interpretation Summary Mild (<50%) stenosis right extracranial internal carotid. Mild (<50%) stenosis left extracranial internal carotid. Flow within the vertebral arteries is antegrade bilaterally. Ordering Physician: Mayo Inman Referring Physician: Mayo Inman Performed By: Navjot Daley RVT
== END | disposition home or self-care (01) ==
LOC: CVS 07:48
PROVIDERS: PCP Internal Medicine; Referring Provider Surgery Vascular Surgery; Visit Provider Surgery Vascular Surgery
DX: I65.23 Occlusion and stenosis of bilateral carotid arteries (principal)
CPT/HCPCS: 93880

== ENCOUNTER → 2024-08-24 | Outpatient (CLI) | payer MEDICARE, SELFPAY ==
[2024-08-24 12:47] LABS: Absolute Lymphocyte Count 2.17 X10^3/uL (0.83-4.51); Absolute Neutrophil Count 4.6 X10^3/uL (2.0-7.7); Basophil# 0.05 X10^3/uL; Basophil% 0.6 % (0-1); Eosinophil# 0.11 X10^3/uL; Eosinophils% 1.4 % (0-5); Hematocrit 38.4 % (37-47); Hemoglobin 12.2 g/dL (12.0-15.0); Lymphocyte # 2.17 X10^3/ul (0.83-4.51); Lymphocyte % 26.9 % (19-41); Mean Corp Hgb Conc 31.8 g/dL (32-36); Mean Corpuscular Hgb 28.8 pg (27.0-32.0); Mean Corpuscular Volume 90.8 fL (81-99); Mean Platelet Vol. 10.8 fl (6.2-12.0); Monocyte# 1.08 X10^3/uL; Monocyte% 13.4 % (0-10); NRBC Flagged by Analyzer 0 % (0-5); Neutrophil # 4.64 X10^3/uL (2.7-7.7); Neutrophil % 57.3 % (47-70); Platelet Count 391 K/mm3 (150-450); RBC Distribution Width CV 13.9 % (11.6-14.6); RBC Distribution Width SD 46.3 fl (35.1-43.9); Red Blood Count 4.23 M/mm3 (4.2-5.4); White Blood Count 8.1 K/mm3 (4.4-11.0)
[2024-08-24 13:07] LABS: ALB/GLOB Ratio 0.8 RATIO (0.9-2.4); AST(SGOT) 17 U/L (15-37); Alanine Aminotransfer ALT/SGPT 18 U/L (13-56); Albumin, Serum 3.3 g/dL (3.2-5.0); Alkaline Phosphatase 141 U/L (45-117); Anion Gap 6 (5-15); BUN 14 mg/dL (7-18); Calcium,Total 8.9 mg/dL (8.5-10.1); Chloride 109 mmol/L (98-107); Cholesterol 156 mg/dL (200); Creatinine, Serum 0.82 mg/dL (0.55-1.02); EST Glomerular Filtration Rate 72 mL/min (>60); Est Glom Filt Rate - Afr Amer 87 mL/min (>60); Globulin 3.9 g/dL (2.2-4.2); Glucose 109 mg/dL (74-106); High Density Lipoprotein 54 mg/dL; Potassium 3.8 mmol/L (3.5-5.1); Protein, Total 7.2 g/dL (6.4-8.2); Sodium Level 140 mmol/L (136-145); T4 Free Direct 1.09 ng/dL (0.76-1.46); Triglycerides 83 mg/dL; Very Low Density Lipoprotein 17 mg/dL (5-40)
== END | disposition home or self-care (01) ==
LOC: BIMLAB 08:44
PROVIDERS: PCP Internal Medicine; Visit Provider Internal Medicine
DX: E78.5 Hyperlipidemia, unspecified (principal); I10 Essential (primary) hypertension
CPT/HCPCS: 36415; 80053; 80061; 84439; 84443; 85025

== ENCOUNTER → 2024-10-08 | Outpatient (CLI) | payer OTHER, SELFPAY ==
--- NOTE | 2024-10-08 10:19 | BI_ITS ---
MAMMOGRAPHY - BILATERAL SCREENING 3-D TOMOSYNTHESIS REASON FOR EXAM: Female, 74 years old. Routine screening PERTINENT HISTORY: No significant family history. Previous reduction surgery TECHNIQUE: 2-D mammograms and 3-D Tomosynthesis of the breast (s) were performed. CAD was performed. COMPARISON: 2022 FINDINGS: The breast composition is almost entirely fat. Scattered benign calcifications are seen. No dense spiculated masses or suspicious microcalcifications are identified. No architectural distortion is identified. There is no skin thickening or retraction. There has been no significant change since the prior study. BI/SCRN MAMM (CAD)W/VENKATA BILAT IMPRESSION: No mammographic signs of malignancy. Routine yearly mammograms recommended. ASSESSMENT CATEGORY: BIRADS Category 1: Negative. A letter regarding these results will be sent to the patient by the facility within 30 days. FOLLOW UP RECOMMENDATION: Yearly follow up mammogram recommended. (A) Approximately 10% of breast cancers are not detected by mammography. A normal mammogram should not delay biopsy of a clinically suspicious abnormality. Electronically Signed: Kunal Hudson MD at 13:12 EST ,
--- NOTE | 2024-10-08 10:19 | BD_ITS ---
STUDY: DUAL ENERGY X-RAY ABSORPTIOMETRY / DXA REASON FOR EXAM: Female, 74 years old. Postmenopausal screening TECHNIQUE: Bone Mineral Density (BMD) measurements of lumbar spine and bilateral hips were obtained. COMPARISON: None. FINDINGS: Lumbar Spine (L1-L4): g/cm2 (1.168) / T-score (1.4) / Z-score (3.8) Left Femur Total: g/cm2 (0.836) / T-score (-0.9) / Z-score (1.0) Left Femoral Neck: g/cm2 (0.695) / T-score (-1.4) / Z-score (0.7) Right Femur Total: g/cm2 (0.844) / T-score (-0.8) / Z-score (1.0) Right Femoral Neck: g/cm2 (0.761) / T-score (-0.8) / Z-score (1.3) BD/Dexa Bone Density Study IMPRESSION: The patient is considered osteopenic as outlined below according to World Josh Organization (WHO) criteria with a moderate fracture risk. 10 year fracture risk: Major osteoporotic fracture 9.1%, hip fracture 1.3% Reference Information: The T-score is the number of standard deviations above or below the standard which is normal for young adults at their peak bone mineral density. The World Health Organization (WHO) interprets the T-scores as follows: Above -1 Normal bone density Between -1 and -2.5 Osteopenia Equal to / or below -2.5 Osteoporosis As a practical clinical guideline, osteopenia may be graded as follows: Mild -1 through -1.5 Moderate -1.6 through -2.0 Severe -2.1 through -2.4 The Z-score is the number of standard deviations above or below age-matched controls. A Z-score of less than -1.5 would be considered abnormal. References: 1. NIH Osteoporosis and Related Bone Diseases www osteo.org 2. International Society for Clinical Densitometry www iscd.org 3. National Osteoporosis Foundation www nof.org Electronically Signed: Kunal Hudson MD at 15:22 EST ,
== END | disposition home or self-care (01) ==
LOC: OPBD 10:19
PROVIDERS: PCP Internal Medicine; Referring Provider Internal Medicine; Visit Provider Internal Medicine
DX: Z12.31 Encounter for screening mammogram for malignant neoplasm of breast (principal); Z78.0 Asymptomatic menopausal state
CPT/HCPCS: 77063; 77067; 77080

== ENCOUNTER → 2025-02-19 | Outpatient (CLI) | payer MEDICARE, SELFPAY ==
[2025-02-19 12:33] LABS: Absolute Lymphocyte Count 2.58 X10^3/uL (0.83-4.51); Absolute Neutrophil Count 3.9 X10^3/uL (2.0-7.7); Basophil# 0.06 X10^3/uL; Basophil% 0.8 % (0-1); Eosinophil# 0.19 X10^3/uL; Eosinophils% 2.4 % (0-5); Hematocrit 39.8 % (37-47); Hemoglobin 13.1 g/dL (12.0-15.0); Lymphocyte # 2.58 X10^3/ul (0.83-4.51); Lymphocyte % 33.1 % (19-41); Mean Corp Hgb Conc 32.9 g/dL (32-36); Mean Corpuscular Hgb 28.6 pg (27.0-32.0); Mean Corpuscular Volume 86.9 fL (81-99); Mean Platelet Vol. 10.5 fl (6.2-12.0); Monocyte# 1.08 X10^3/uL; Monocyte% 13.8 % (0-10); NRBC Flagged by Analyzer 0 % (0-5); Neutrophil # 3.87 X10^3/uL (2.7-7.7); Neutrophil % 49.6 % (47-70); Platelet Count 415 K/mm3 (150-450); RBC Distribution Width CV 14.3 % (11.6-14.6); RBC Distribution Width SD 45.4 fl (35.1-43.9); Red Blood Count 4.58 M/mm3 (4.2-5.4); White Blood Count 7.8 K/mm3 (4.4-11.0)
[2025-02-19 13:01] LABS: Hemoglobin A1c 6.1 % (<=5.6)
[2025-02-19 13:06] LABS: ALB/GLOB Ratio 1.2 RATIO (0.9-2.4); AST(SGOT) 19 U/L (<=31); Alanine Aminotransfer ALT/SGPT 12 U/L (<=34); Albumin, Serum 3.8 g/dL (3.4-4.8); Alkaline Phosphatase 145 U/L (35-104); Anion Gap 10 (5-15); BUN 12 mg/dL (4-19); BUN/Creat Ratio 14.4 RATIO (10-20); Calcium,Total 9.3 mg/dL (7.6-11.0); Carbon Dioxide 22.5 mmol/L (21.0-32.0); Chloride 106 mmol/L (98-108); Cholesterol 169 mg/dL (<=200); Creatinine, Serum 0.83 mg/dL (0.70-1.20); EST Glomerular Filtration Rate 73 (>60); Globulin 3.3 g/dL (2.2-4.2); Glucose 101 mg/dL (70-99); High Density Lipoprotein 49 mg/dL; Low Density Lipoprotein Calc. 101 mg/dL; Magnesium 2.2 mg/dL (1.5-2.2); Potassium 3.9 mmol/L (3.3-5.1); Protein, Total 7.1 g/dL (5.9-8.4); Sodium Level 139 mmol/L (133-145); Total Bilirubin 0.37 mg/dL (0.00-1.30); Triglycerides 96 mg/dL; Very Low Density Lipoprotein 19 mg/dL (5-40); cholesterol:hdl ratio screen 3.48
[2025-02-22 12:08] LABS: Vitamin D 1,25-Dihydroxy 20.7 pg/mL (24.8-81.5)
== END | disposition home or self-care (01) ==
LOC: BIMLAB 08:11
PROVIDERS: PCP Internal Medicine; Referring Provider Physician Assistant Medical; Visit Provider Physician Assistant Medical
DX: I10 Essential (primary) hypertension (principal); E78.5 Hyperlipidemia, unspecified; M85.80 Other specified disorders of bone density and structure, unspecified site; R53.83 Other fatigue; R06.09 Other forms of dyspnea; R73.09 Other abnormal glucose
CPT/HCPCS: 36415; 80053; 80061; 82652; 83036; 83735; 84439; 84443; 84481; 85025